=== PATIENT | female | born 1980 | race African-American/Black ===

== ENCOUNTER 2017-02-18 19:02 | Emergency (ER) | payer MEDICAID, OTHER ==
[~2017-02-18] VITALS: Ht 165.1 cm; Wt 86.6 kg
[~2017-02-18 19:02] MED LIST: NO MEDS
[2017-02-18 20:15] VITALS: BP 102/55
== END 2017-02-18 23:00 | disposition left against medical advice (07) ==
LOC: ER 19:45
DX: L02.31 Cutaneous abscess of buttock (principal); Z53.21 Procedure and treatment not carried out due to patient leaving prior to being seen by health care provider

== ENCOUNTER 2019-03-11 07:04 | Emergency (ER) | payer MEDICAID, OTHER ==
[~2019-03-11] VITALS: Ht 165.1 cm; Wt 89.0 kg
[2019-03-11] MEDS ORDERED: SODIUM CHLORIDE 0.9% 1,000 ML IV ONE (07:18)
[2019-03-11] MEDS ORDERED: KETOROLAC 30MG/ML VIAL IV STA (07:18)
[2019-03-11] MEDS ORDERED: ONDANSETRON HCL 4MG/2ML INJ IV STA (07:18)
[2019-03-11 07:56] LABS: BASOPHILS % 0.2 % (0.0-2.0); HEMATOCRIT. 38.3 % (36.0-48.0); HEMOGLOBIN. 12.5 g/dL (12.0-16.0); LYMPHOCYTES % 7.7 % (20.0-50.0); MEAN CORPUSCULAR HEMOGLOBIN 28.1 pg (28.0-32.0); MEAN PLATELET VOLUME 7.9 fl (7.4-10.4); NEUTROPHILS % 85.1 % (40.0-76.0); PLATELET 373 x1000/uL (130-400); RED BLOOD CELL COUNT 4.45 mill/uL (4.2-5.4); RED CELL DISTRIBUTION WIDTH 13.1 % (11.6-14.6)
[2019-03-11 08:03] LABS: CHLORIDE 107 mEq/L (98-107)
[2019-03-11 08:04] LABS: PROTHROMBIN TIME 10.6 sec (9.6-11.0)
[2019-03-11 09:46] LABS: CLARITY URINE TURBID (CLEAR); COLOR URINE AMBER (YELLOW); KETONES URINE 1+ (NEGATIVE); LEUKOCYTE ESTERASE URINE 1+ (NEGATIVE); NITRITE URINE NEGATIVE (NEGATIVE); OCCULT BLOOD URINE 3+ (NEGATIVE); PH URINE 5.5 (4.5-8.0); PROTEIN URINE 1+ (NEGATIVE); SPECIFIC GRAVITY URINE 1.025 (1.005-1.030)
[2019-03-11] MEDS ORDERED: ACETAMINOPHEN 325MG TABLET PO ONE (10:45)
[2019-03-11] MEDS ORDERED: METOCLOPRAMIDE HCL 10MG/2ML VIAL IV ONE (10:45)
[2019-03-11 12:37] VITALS: BP 133/79
== END 2019-03-11 12:55 | disposition home or self-care (01) ==
LOC: ER 07:04
DX: N39.0 Urinary tract infection, site not specified (principal); R51 Headache; Z98.890 Other specified postprocedural states
CPT/HCPCS: 36415; 76830; 76856; 80053; 81003; 81025; 83690; 85025; 85610; 87086; 96374; 96375; 99284; J1885; J2405; J2765; J7030

== ENCOUNTER 2019-03-12 07:17 | Inpatient (IN) | payer MEDICAID, OTHER ==
[~2019-03-12] VITALS: Ht 167.6 cm; Wt 89.8 kg
[2019-03-12] VITALS (20 sets, daily range): BP systolic 117–150; BP diastolic 59–99
[~2019-03-12 07:17] MED LIST changes: +VANCOMYCIN 1 G PREMIX 200 ML IV SCH
[2019-03-12] MEDS ORDERED: ONDANSETRON HCL 4MG/2ML INJ IV STA (08:50)
[2019-03-12] MEDS ORDERED: SODIUM CHLORIDE 0.9% 1,000 ML IV ONE ×2 (08:50→10:54)
[2019-03-12] MEDS ORDERED: MORPHINE SULFATE 4 MG/ML CPJ (NOT FOR IM USE) IV STA ×4 (08:50→12:38)
[2019-03-12 09:08] LABS: HEMATOCRIT. 39.7 % (36.0-48.0); HEMOGLOBIN. 13.4 g/dL (12.0-16.0); MEAN CORPUSCULAR HEMOGLOBIN 28.6 pg (28.0-32.0); MEAN CORPUSCULAR VOLUME 85.1 fL (81.0-99.0); MEAN PLATELET VOLUME 8.8 fl (7.4-10.4); PLATELET 328 x1000/uL (130-400); RED BLOOD CELL COUNT 4.67 mill/uL (4.2-5.4)
[2019-03-12 09:17] LABS: CHLORIDE 105 mEq/L (98-107)
[2019-03-12 09:21] LABS: ETHANOL BLOOD < 10 mg/dL
[2019-03-12 09:40] LABS: CLARITY URINE TURBID (CLEAR); COLOR URINE ORANGE (YELLOW); KETONES URINE 3+ (NEGATIVE); LEUKOCYTE ESTERASE URINE 1+ (NEGATIVE); NITRITE URINE POSITIVE (NEGATIVE); OCCULT BLOOD URINE 3+ (NEGATIVE); PH URINE 5.5 (4.5-8.0); PROTEIN URINE 2+ (NEGATIVE); SPECIFIC GRAVITY URINE 1.033 (1.005-1.030)
[2019-03-12 09:49] LABS: INR 1.2; PROTHROMBIN TIME 12.7 sec (9.6-11.0)
[2019-03-12 09:57] LABS: PLATELET ESTIMATE NORMAL
[2019-03-12] MEDS ORDERED: IOHEXOL-300 100 ML BOTTLE ONE (10:56)
[2019-03-12] MEDS ORDERED: PIPERACILLIN/TAZ 3.375G PREMIX 50 ML IV ONE (11:00)
[2019-03-12] MEDS ORDERED: LEVOFLOXACIN 750MG PREMIX 150 ML IV ONE (11:00)
[2019-03-12] MEDS ORDERED: DIATR MEGLU/DIATRIZOATE SOLN 30ML ONE (13:00)
[2019-03-12] MEDS ORDERED: DIATR MEGLU/DIATRIZOATE SOLN 120ML ONE (14:51)
[2019-03-12] MEDS ORDERED: FENTANYL CITRATE/PF 50MCG/ML 2ML VIAL ONE (15:11)
[2019-03-12] MEDS ORDERED: LIDOCAINE HCL 1% 20ML VIAL (Pyxis) INJ ONE (15:29)
[2019-03-12] MEDS ORDERED: SODIUM BICARBONATE 4% (2.4MEQ) 5ML VIAL IV ONE (15:29)
[2019-03-12] MEDS ORDERED: MAGNESIUM/ALUMINUM HYDROXIDE/SIMETHICONE 30ML UDC PO PRN (15:30)
[2019-03-12] MEDS ORDERED: IPRATROPIUM/ALBUTEROL 0.5-3(2.5)MG/3ML NEB INH PRN (15:30)
[2019-03-12] MEDS ORDERED: CLONIDINE 0.1MG TABLET PO PRN (15:30)
[2019-03-12] MEDS ORDERED: VANCOMYCIN 1 G PREMIX 200 ML IV SCH (15:30)
[2019-03-12] MEDS ORDERED: GUAIFENESIN 200MG/10ML SUGAR FREE UDC PO PRN (15:30)
[2019-03-12] MEDS ORDERED: DIPHENHYDRAMINE 50MG/ML VIAL IV PRN (15:30)
[2019-03-12] MEDS ORDERED: ACETAMINOPHEN 325MG TABLET PO PRN (15:30)
[2019-03-12] MEDS ORDERED: FENTANYL CITRATE/PF 50MCG/ML 2ML VIAL IV ONE (16:00)
[2019-03-12 16:07] LABS: PHOSPHORUS 2.5 mg/dL (2.5-4.9)
[2019-03-12] MEDS ORDERED: VANCOMYCIN 1500MG in DEXTROSE 5% WATER 250ML IV NR (18:30)
[2019-03-12] MEDS: HYDROMORPHONE HCL/PF 2MG/ML CPJ IV PRN ×2 (18:55→22:58)
[2019-03-12] MEDS ORDERED: DEXTROSE 50% WATER 50ML SYRINGE IV PRN (19:00)
[2019-03-12] MEDS: BLOOD SUGAR DIAGNOSTIC STRIP TEST SCH (21:00)
[2019-03-12] MEDS: INSULIN LISPRO 100 UNITS/ML SUBCUT SCH (21:00)
[2019-03-12] MEDS: PIPERACILLIN/TAZ 3.375G PREMIX 50 ML IV SCH (21:43)
[2019-03-13] VITALS: BP 128/89
[2019-03-13] MEDS: PIPERACILLIN/TAZ 3.375G PREMIX 50 ML IV SCH ×4 (01:53→23:08)
[2019-03-13] MEDS ORDERED: VANCOMYCIN 1 G PREMIX 200 ML IV SCH (03:00)
[2019-03-13 04:00] VITALS: BP 121/70
[2019-03-13] MEDS: HYDROMORPHONE HCL/PF 2MG/ML CPJ IV PRN ×5 (04:20→22:20)
[2019-03-13 07:10] LABS: HEMATOCRIT. 34.6 % (36.0-48.0); HEMOGLOBIN. 11.5 g/dL (12.0-16.0); MEAN CORPUSCULAR HEMOGLOBIN 28.2 pg (28.0-32.0); MEAN CORPUSCULAR VOLUME 85.1 fL (81.0-99.0); MEAN PLATELET VOLUME 8.4 fl (7.4-10.4); PLATELET 315 x1000/uL (130-400); RED BLOOD CELL COUNT 4.07 mill/uL (4.2-5.4); RED CELL DISTRIBUTION WIDTH 13.2 % (11.6-14.6)
[2019-03-13] MEDS: BLOOD SUGAR DIAGNOSTIC STRIP TEST SCH ×4 (07:10→20:48)
[2019-03-13 07:25] LABS: CHLORIDE 102 mEq/L (98-107)
[2019-03-13 07:40] LABS: LDL CHOLESTEROL 62 mg/dL (5-100)
[2019-03-13 07:41] LABS: HDL CHOLESTEROL 23 mg/dL (40-59)
[2019-03-13 08:00] VITALS: BP 121/79
[2019-03-13] MEDS: INSULIN LISPRO 100 UNITS/ML SUBCUT SCH ×4 (08:10→20:48)
[2019-03-13] MEDS: SODIUM CHLORIDE 0.9% 1,000 ML IV SCH ×2 (09:33→21:35)
[2019-03-13 10:56] LABS: ATYPICAL LYMPHOCYTES 1
[2019-03-13 10:57] LABS: PLATELET ESTIMATE NORMAL
[2019-03-13] MEDS ORDERED: VANCOMYCIN 1500MG in DEXTROSE 5% WATER 250ML IV SCH (11:00)
[2019-03-13 12:00] VITALS: BP 137/81
[2019-03-13] MEDS ORDERED: DOXYCYCLINE HYCLATE 100MG CAPSULE PO ONE (15:00)
[2019-03-13] MEDS: DOCUSATE SODIUM 100MG CAPSULE PO PRN (15:01)
[2019-03-13 16:00] VITALS: BP 123/86
[2019-03-13] MEDS ORDERED: SODIUM CHLORIDE 0.9% 1,000 ML IV ONE (18:00)
[2019-03-13] MEDS ORDERED: POLYETHYLENE GLYCOL 3350 (17GM) 1 DOSE PACK PO SCH (18:00)
[2019-03-13] MEDS ORDERED: HYDROCODONE/ACETAMINOPHEN 5/325MG TABLET PO PRN (18:00)
[2019-03-13] MEDS: DOXYCYCLINE HYCLATE 100MG CAPSULE PO SCH (18:04)
[2019-03-13 20:00] VITALS: BP 122/79
[2019-03-13] MEDS: POLYETHYLENE GLYCOL 3350 (17GM) 1 DOSE PACK PO SCH (20:50)
[2019-03-13] MEDS: VANCOMYCIN 1500MG in DEXTROSE 5% WATER 250ML IV SCH (22:20)
[2019-03-14] VITALS: BP 119/73
[2019-03-14] MEDS: ONDANSETRON HCL 4MG/2ML INJ IV PRN ×3 (02:31→19:16)
[2019-03-14] MEDS: HYDROMORPHONE HCL/PF 2MG/ML CPJ IV PRN ×5 (02:32→22:51)
[2019-03-14 04:00] VITALS: BP 126/74
[2019-03-14] MEDS: PIPERACILLIN/TAZ 3.375G PREMIX 50 ML IV SCH ×4 (04:20→21:22)
[2019-03-14 05:44] LABS: HEMATOCRIT. 31.6 % (36.0-48.0); HEMOGLOBIN. 10.4 g/dL (12.0-16.0); MEAN CORPUSCULAR VOLUME 85.1 fL (81.0-99.0); MEAN PLATELET VOLUME 8.5 fl (7.4-10.4); PLATELET 290 x1000/uL (130-400); RED BLOOD CELL COUNT 3.71 mill/uL (4.2-5.4); RED CELL DISTRIBUTION WIDTH 13.3 % (11.6-14.6)
[2019-03-14] MEDS: DOCUSATE SODIUM 100MG CAPSULE PO PRN (06:01)
[2019-03-14] MEDS: INSULIN LISPRO 100 UNITS/ML SUBCUT SCH ×4 (07:44→21:00)
[2019-03-14] MEDS: BLOOD SUGAR DIAGNOSTIC STRIP TEST SCH ×4 (07:44→21:21)
[2019-03-14 08:00] VITALS: BP 125/84
[2019-03-14] MEDS: POLYETHYLENE GLYCOL 3350 (17GM) 1 DOSE PACK PO SCH (08:33)
[2019-03-14] MEDS: DOXYCYCLINE HYCLATE 100MG CAPSULE PO SCH ×2 (08:33→16:35)
[2019-03-14] MEDS: VANCOMYCIN 1500MG in DEXTROSE 5% WATER 250ML IV SCH (08:34)
[2019-03-14 12:00] VITALS: BP 122/83
[2019-03-14 12:29] LABS: PLATELET ESTIMATE NORMAL
[2019-03-14 16:00] VITALS: BP 126/81
[2019-03-14] MEDS: POTASSIUM CHLORIDE 20MEQ/PACKET PO NR ×2 (19:17→19:36)
[2019-03-14] MEDS ORDERED: POTASSIUM CHLORIDE 20MEQ TABLET SR PO SCH (19:45)
[2019-03-14 20:00] VITALS: BP 135/87
[2019-03-14] MEDS: SODIUM CHLORIDE 0.9% 1,000 ML IV SCH (21:22)
[2019-03-15] VITALS: BP 128/84
[2019-03-15 04:00] VITALS: BP 152/102
[2019-03-15] MEDS: HYDROMORPHONE HCL/PF 2MG/ML CPJ IV PRN ×5 (04:05→23:14)
[2019-03-15] MEDS: PIPERACILLIN/TAZ 3.375G PREMIX 50 ML IV SCH ×2 (04:05→09:04)
[2019-03-15] MEDS: ONDANSETRON HCL 4MG/2ML INJ IV PRN (04:05)
[2019-03-15 08:00] VITALS: BP 145/91
[2019-03-15] MEDS: INSULIN LISPRO 100 UNITS/ML SUBCUT SCH ×4 (08:10→21:00)
[2019-03-15] MEDS: BLOOD SUGAR DIAGNOSTIC STRIP TEST SCH ×4 (08:31→21:29)
[2019-03-15] MEDS: POLYETHYLENE GLYCOL 3350 (17GM) 1 DOSE PACK PO SCH (09:04)
[2019-03-15] MEDS: DOXYCYCLINE HYCLATE 100MG CAPSULE PO SCH ×2 (09:04→18:08)
[2019-03-15 09:25] LABS: HEMATOCRIT 31.5 % (36.0-48.0); HEMOGLOBIN 10.3 g/dL (12.0-16.0); MEAN CORPUSCULAR HEMOGLOBIN 27.7 pg (28.0-32.0); MEAN CORPUSCULAR VOLUME 84.7 fL (81.0-99.0); PLATELET 287 x1000/uL (130-400); RED BLOOD CELL COUNT 3.72 mill/uL (4.2-5.4); RED CELL DISTRIBUTION WIDTH 13.4 % (11.6-14.6)
[2019-03-15 12:00] VITALS: BP 142/70
[2019-03-15] MEDS: SODIUM CHLORIDE 0.9% 1,000 ML IV SCH (12:25)
[2019-03-15] MEDS: LINEZOLID 600 MG PREMIX 300 ML IV SCH (15:36)
[2019-03-15 16:00] VITALS: BP 145/94
[2019-03-15] MEDS: PIPERACILLIN/TAZ 2.25G PREMIX 50 ML IV SCH (18:08)
[2019-03-15 20:00] VITALS: BP 133/80
[2019-03-16] VITALS: BP 123/82
[2019-03-16] MEDS: PIPERACILLIN/TAZ 2.25G PREMIX 50 ML IV SCH ×4 (00:40→18:32)
[2019-03-16] MEDS: HYDROMORPHONE HCL/PF 2MG/ML CPJ IV PRN ×5 (02:52→17:26)
[2019-03-16] MEDS: LINEZOLID 600 MG PREMIX 300 ML IV SCH ×2 (02:54→15:45)
[2019-03-16 04:00] VITALS: BP 148/86
[2019-03-16] MEDS: BLOOD SUGAR DIAGNOSTIC STRIP TEST SCH ×3 (05:50→17:40)
[2019-03-16 06:31] LABS: HEMATOCRIT. 31.3 % (36.0-48.0); HEMOGLOBIN. 10.2 g/dL (12.0-16.0); MEAN CORPUSCULAR HEMOGLOBIN 27.4 pg (28.0-32.0); MEAN CORPUSCULAR VOLUME 84.1 fL (81.0-99.0); MEAN PLATELET VOLUME 8.2 fl (7.4-10.4); PLATELET 323 x1000/uL (130-400); RED BLOOD CELL COUNT 3.72 mill/uL (4.2-5.4); RED CELL DISTRIBUTION WIDTH 13.4 % (11.6-14.6)
[2019-03-16] MEDS: SODIUM CHLORIDE 0.9% 1,000 ML IV SCH (06:32)
[2019-03-16] MEDS: INSULIN LISPRO 100 UNITS/ML SUBCUT SCH ×3 (07:40→18:10)
[2019-03-16] MEDS: POLYETHYLENE GLYCOL 3350 (17GM) 1 DOSE PACK PO SCH (09:00)
[2019-03-16] MEDS: DOXYCYCLINE HYCLATE 100MG CAPSULE PO SCH ×2 (09:38→18:32)
[2019-03-16 12:00] VITALS: BP 132/89
[2019-03-16] MEDS ORDERED: POTASSIUM CHLORIDE 20MEQ TABLET SR PO NR (14:15)
[2019-03-16 14:30] LABS: PLATELET ESTIMATE NORMAL
[2019-03-16 18:51] VITALS: BP 138/89
[2019-03-17 13:15] LABS: *CREATININE RANDOM URINE 51.5 mg/dL (Not Estab.); MICROALBUMIN RANDOM URINE 32.9 ug/mL (Not Estab.)
[2019-03-19 06:17] LABS: CHLAMYDIA TRACHOMATIS NAA Negative (Negative); NEISSERIA GONORRHOEAE NAA Negative (Negative)
== END 2019-03-16 20:00 | disposition short-term general hospital (02) | DRG 720 ==
LOC: ER 07:48 → 7WST 15:14 → ENRESERV 15:23 → CANRESERV 15:23 → ENRESERV 16:46
PROVIDERS: ADMIT Internal Medicine; ATTEND Internal Medicine
PROC: 0U9 Female Reproductive System, Drainage (ICD-10-PCS; principal; 2019-03-12)
DX: A41.9 Sepsis, unspecified organism (principal); N17.9 Acute kidney failure, unspecified; R18.8 Other ascites; E11.65 Type 2 diabetes mellitus with hyperglycemia; E87.1 Hypo-osmolality and hyponatremia; N39.0 Urinary tract infection, site not specified; N76.0 Acute vaginitis; N73.9 Female pelvic inflammatory disease, unspecified; T50.8X5A Adverse effect of diagnostic agents, initial encounter; T36.8X5A Adverse effect of other systemic antibiotics, initial encounter; D64.9 Anemia, unspecified; E87.6 Hypokalemia; I10 Essential (primary) hypertension; Z98.891 History of uterine scar from previous surgery; Y92.89 Other specified places as the place of occurrence of the external cause
CPT/HCPCS: 36415; 71045; 74018; 74176; 74177; 76770; 76830; 76856; 77012; 80048; 80061; 80202; 80320; 82043; 82570; 82962; 83036; 83735; 84100; 84145; 84300; 84443; 84702; 85027; 87075; 87491; 87591; 93005; 93970; 96365; 96368; 96375; 96376; 99285; J1170; J1956; J2020; J2270; J2405; J2543; J3010; J3370; J3490; J7030; J7050; J7060; Q9963; Q9967; A4315; G0480